=== PATIENT | male | born 1990 | race Caucasian/White ===

== ENCOUNTER → 2017-12-06 | Emergency (ER) | payer OTHER ==
[~2017-12-06] VITALS: Ht 177.8 cm; Wt 83.5 kg
== END | disposition home or self-care (01) ==
LOC: ER 19:04
DX: S60.211A Contusion of right wrist, initial encounter (principal); W18.39XA Other fall on same level, initial encounter; Y93.89 Activity, other specified; Y92.89 Other specified places as the place of occurrence of the external cause; Y99.8 Other external cause status